=== PATIENT | male | born 1985 | race Caucasian/White ===

== ENCOUNTER → 2023-06-13 10:47 | Outpatient (REF) | payer OTHER, SELFPAY | LOC: RAD 10:47 | PROVIDERS: ATTENDING PHYSICIAN Nurse Practitioner Family | DX: M79.641 Pain in right hand (principal); M25.531 Pain in right wrist | CPT/HCPCS: 73110; 73130 ==

== ENCOUNTER → 2023-06-14 07:33 | Outpatient (REF) | payer OTHER, SELFPAY | LOC: EMG 07:33 | PROVIDERS: ATTENDING PHYSICIAN Nurse Practitioner Family; FAMILY PHYSICIAN Physician Assistant | DX: M79.641 Pain in right hand (principal); M25.531 Pain in right wrist; R20.0 Anesthesia of skin | CPT/HCPCS: 95886; 95910 ==